=== PATIENT | male | born 2000 | race Caucasian/White ===

== ENCOUNTER 2024-11-30 09:40 | Emergency (ER) | payer BC, SELFPAY ==
[2024-11-30 10:04] VITALS: BP 150/100
--- NOTE | 2024-11-30 10:05 | ED.GENMED ---
ED Provider Triage
<Eder Flaherty PA-C - Last Filed: 11/30/24 10:06>
-
Patient seen by provider in Triage?: Seen in Triage
Attestation: A medical screening examination has been initiated by a qualified medical provider. Based on the assessment performed at this time, it has been determined that an emergent medical condition may exist and the patient has been informed
that further medical evaluation and possible additional diagnostic testing may be needed.
HPI: 24-year-old male presents for evaluation of discomfort and numbness to the right heel and thigh. States it is worse after prolonged periods of sitting and improves when he walks. Also notes that the leg and foot appears swollen and red
whenever he sits for a long time. He is a smoker.
GENERAL: Alert , in no apparent distress
EYE: No visual abnormalities.
NECK: Trachea midline
ENT: No visible abnormalities.
LUNGS: No acute respiratory distress
NEUROLOGICAL: Alert and oriented
SKIN: Skin intact. No visible changes.
MUSCULOSKELETAL: Moving extremities normally
PSYCH: Normal and appropriate interaction.
This is a medical evaluation conducted in person to initiate diagnostic evaluation and provide initial therapeutics. Please see further documentation by the treating clinician.
History of Present Illness
<Eder Flaherty PA-C - Last Filed: 11/30/24 10:06>
General
Chief Complaint: Circulation Problem
Time Seen by Provider: 11/30/24 11:21
<Syed Almaguer DO - Last Filed: 11/30/24 14:28>
General
Source: patient
History of Present Illness
History of Present Illness:
24-year-old male presents to the emergency room complaining of pain in his right posterior lower leg. He feels his legs are erythematous as well. Symptoms are worse when his legs are in a dependent position. No chest pain or shortness of breath.
Patient denies any fever or chills. Patient denies any known medical history. Patient has had issues with his legs previously. He believes he was seen at [facility] emergency room and he had an ultrasound which was negative. Patient used
to have a family doctor but he 'lost camille in him' because he never had answers for what was bothering him. Patient does not take any prescribed medication
Past History
<Eder Flaherty PA-C - Last Filed: 11/30/24 10:06>
Past History
ED Past Medical History: None
ED Past Surgical History: None
Social History
Tobacco: Non-smoker
Alcohol: None
Drug: None
Phy Exam
<Syed Almaguer DO - Last Filed: 11/30/24 14:28>
Physical Exam
Physical Exam:
General: Awake, Alert, Oriented X3. No acute distress.
Vitals: unremarkable
Head: Atraumatic
Eyes: Pupils equal, EOMI
Throat: Airway intact, no exudates
Neck: Trachea midline
Lungs: Clear and equal b/l
Heart: Regular rate, no murmurs
Abd: Soft, Nontender, No pulsatile mass
Neuro: Nonfocal
Skin: Warm, dry, no rash
Extremities: pulses equal b/l, no edema, bilateral leg seems somewhat erythematous. There are multiple areas of varicose veins which nena and are not particularly tender.
Course
<Eder Flaherty PA-C - Last Filed: 11/30/24 10:06>
Orders/Labs/Results
Orders:
Orders
11/30/24 10:05
Venous Doppler Lwr Ext Rt [US Periph Venous LOWER Ext RT] Urgent
Comment:
Reason For Exam: R calf pain/leg swelling
Vital Signs
Initial and Last Documented VS:
Initial Vital Signs
Temp Pulse Resp BP Pulse Ox
98.2 F 100 16 150/100 98
11/30/24 10:04 11/30/24 10:04 11/30/24 10:04 11/30/24 10:04 11/30/24 10:04
Last Documented Vital Signs
Temp Pulse Resp BP Pulse Ox
98.2 F 100 16 150/100 98
11/30/24 10:04 11/30/24 10:04 11/30/24 10:04 11/30/24 10:04 11/30/24 10:04
<Syed Almaguer DO - Last Filed: 11/30/24 14:28>
Orders/Labs/Results
Orders:
Orders
11/30/24 10:05
Venous Doppler Lwr Ext Rt [US Periph Venous LOWER Ext RT] Urgent
Comment:
Reason For Exam: R calf pain/leg swelling
Vital Signs
Initial and Last Documented VS:
Initial Vital Signs
Temp Pulse Resp BP Pulse Ox
98.2 F 100 16 150/100 98
11/30/24 10:04 11/30/24 10:04 11/30/24 10:04 11/30/24 10:04 11/30/24 10:04
Last Documented Vital Signs
Temp Pulse Resp BP Pulse Ox
98.2 F 100 16 150/100 98
11/30/24 10:04 11/30/24 10:04 11/30/24 10:04 11/30/24 10:04 11/30/24 10:04
<Syed Almaguer DO - Last Filed: 11/30/24 14:28>
MDM/Problems Addressed
Differential Diagnosis Includes:
DVT, varicose veins,
MDM/Problems Addressed:
Patient's physical exam shows varicose veins in the leg but otherwise he has good perfusion. His skin is erythematous but there does not appear to be any evidence of a significant rash or infectious process. Dopplers are negative for DVT. Patient
stable for discharge home and follow-up as an outpatient with family [facility]. I have provided his information to the family practice clinical sales consultant.
<Syed Almaguer, - Last Filed: 11/30/24 14:28>
*Radiology
Radiology exam reviewed: radiology read reviewed
*Pulse Oximetry
Patient hypoxic: no
*Critical Care Note
Total Time (30-74mins, 75-104mins- exclusive of procedures): Not Applicable
ED Attending Note
<Eder Flaherty PA-C - Last Filed: 11/30/24 10:06>
-
Portions of this chart may have been created with voice recognition software.� Occasional wrong word or��sound alike� substitutions may have occurred due to the inherent limitations of voice recognition software.
Discharge Plan
Departure
Patient Disposition: Home (Routine Discharge)
Date of Disposition: 11/30/24
Time of Disposition: 12:34
Patient with high blood pressure during this ER visit?: No
Condition: Good
Discharge Problem:
Leg pain, Varicose veins of both lower extremities
Instructions: Varicose veins and other vein disease in the legs, BLOOD PRESSURE
Referrals:
[facility] [Outside]
NONE,* [Family Provider] -
Interventions
Interventions:
*Risk Screen - Suicide Last Done: 11/30/24 10:04
*Neglect/Abuse Screening Last Done: 11/30/24 10:04
*ED COVID-19 Vaccine History Last Done: 11/30/24 11:31
*Nursing Disposition Last Done: 11/30/24 12:51
ED-Peripheral Vascular Assessment Last Done: 11/30/24 11:30
Discharge Date and Time
Discharge Date/Time: 11/30/24 12:52
Print Language: NAMIBIAN
== END 2024-11-30 12:52 | disposition home or self-care (01) ==
LOC: EMR 09:40
PROVIDERS: EMERGENCY PHYSICIAN Emergency Medicine
DX: I83.93 Asymptomatic varicose veins of bilateral lower extremities (principal); M79.604 Pain in right leg
CPT/HCPCS: 99284; 93971